=== PATIENT | female | born 1965 | race Caucasian/White ===

== ENCOUNTER 2017-05-05 12:41 | Emergency (ER) | payer OTHER ==
[~2017-05-05] VITALS: Ht 167.6 cm; Wt 54.4 kg
[~2017-05-05 12:41] MED LIST: BENTYL GENERIC10 MG PO; ZOFRAN ODT8 MG PO
--- NOTE | 2017-05-05 12:58 | [facility]gent [facility] Report ---
History of Present Issue Date/Time Seen by Provider 05/05/17 1258 Visit Reason Pt arrived:Walked Presenting Problem:PT STATES BEING STUNG IN R HAND BY A WASP YESTERDAY AFTERNOON. STATES HAND AND ARM SWELLING. STATES TAKING BENADRYL ONE HOUR AGO Location if Accident:Home Onset of symptoms date/time:05/04/17/ or onset unknown for:MEDICAL HX UNKNOWN Have you (or family members/close friends) recently traveled outside the [place]? N If Yes, where/when: Have you had exposure to infectious disease within the past month? TB? Other? Specify: c/o right hand/FA swollen and red following a sting yesterday. Did not see the sting occur but immediately upon being stung, saw a wasp. Soon after sting, redness, swelling. "I just assumed this would pass with benadryl". Benadryl 50mg less than one hour ago. 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 Denies limited ROM fingers, wrist, elbow. Ibuprofen last night helped "somewhat" but none today. Denies N/T. Mild pain, "lots of itching". Denies SOA, difficulty swallowing, difficulty breathing. Source patient Exam Limitations no limitations ALLERGIES Coded Allergies: codeine (05/05/17) History Medical History General CAD? No Angina: No [place]: No Hypertension? No Hyperlipidemia? No CHF? No DVT? No PE? No COPD? No Asthma? No Anemia? No GERD? No Gastric ulcers? No GI Bleed? No Hernia? No Thyroid Problems? No Hypothyroidism? No CVA? No Seizures? No Diabetes? No Renal Insuffiency? No UTI? No Stones? No BPH? No GB Disease: No Nephritic Syndrome? No Asplenia? No Hepatitis? No Sickle Cell Disease? No Arthritis? No Migraines? No Cataracts? No Glaucoma? No MRSA? No HIV? No TB? No Anxiety? No Depression? No Cancer? No Immunization HX DT/Tetanus NOT SURE Surgical Hx Previous Surgery?Y D AND C Social History Smoking Hx Smoker: Current Every Day Smoker Tobacco: Yes Type Cigarettes Alcohol Alcohol: No Review of Systems All Other Systems Reviewed and Negative Constitutional denies fever, denies malaise, denies weakness ENT denies: throat pain, throat swelling. Respiratory see HPI Gastrointestinal denies nausea Musculoskeletal see HPI Skin see HPI, denies lesions Psychiatric/Neurological see HPI Physical Exam Vital Signs Vital Signs Date Time Temp Pulse Resp B/P Pulse O2 O2 Flow FiO2 Ox Delivery Rate 05/05 1253 98.2 68 18 142/77 98 General Appearance no apparent distress Respiratory Status No: respiratory distress. Lung Sounds anterior: lungs clear. posterior: lungs clear. bilateral: lungs clear. Cardiovascular no peripheral edema Peripheral Pulses Pulses normal Yes (radial) Extremities normal range of motion (rt fingers, wrist, elbow), Mild swelling distal upper arm extending to all finger tips, tight, tender, erythematous Strength 5 Upper Ext (L), 5 Upper Ext (R) Neurologic alert, no motor/sensory deficits, oriented x 3 Skin warm/dry, right arm mildly erythematous (see extremity) Medical Decision Making LABS/Meds/Orders Pt receiving controlled substance in ED? No Results/Orders Current Medication Orders Sig/Jcarlos Start time Last Medication Dose Route Stop Time Status Admin Dexamethasone Sodium 8 MG ONCE ONE 05/05 1315 DC 05/05 Phosphate IM 05/05 1316 1312 Ibuprofen 800 MG ONCE ONE 05/05 1315 CAN PO 05/05 1316 Ibuprofen 800 MG ONCE ONE 05/05 1315 DC 05/05 PO 05/05 1316 1311 Dexamethasone Sodium 0 .STK-MED ONE 05/05 1308 DC Phosphate .ROUTE Ibuprofen 0 .STK-MED ONE 05/05 1308 DC PO Progress [facility] Progress Notes Date 05/05/17 Time 1335 Comment No longer itching. redness starting to fade. Remains swollen. pt eager to get back to work. Agrees to follow up if no improvement. Departure Departure Time of Disposition 1335 Disposition DC Home or Self Care(routine) Clinical Impression Primary Impression: Wasp sting Qualifiers: Encounter type: initial encounter Injury intent: accidental or unintentional Qualified Code: T63.461A - Toxic effect of venom of wasps, accidental (unintentional), initial encounter Condition STABLE Referrals NO REFERRAL Due to not having a primary care provider, we have provided you with a list of providers accepting patients. I would encourage you find him a new primary care provider and make an appt RASHAAD as it can take weeks to get a new patient appointment. In the meantime, follow up in the clinic or ER for new, worsening or persistent symptoms. Patient Instructions DI for Insect Bites and Stings, How to Care for an Insect Bite or Sting Additional Instructions * Ice x15-20 mins 3-4 times a day * Ibuprofen 600-800mg every 6 hours as needed for pain but also for inflammation * Benadryl 50mg very 4-6 hours as needed for itching, redness, swelling * ELEVATE to help reduce swelling * Read attached instructions *Seek treatment immediately for new or worsening symptoms or if no improvement over the next 24 hours. Discharge Counseling Counseled pt/family regarding diagnosis, medications/RX, home care, follow up needs at [phone]
[2017-05-05 13:41] VITALS: BP 142/77
== END 2017-05-05 13:42 | disposition home or self-care (01) ==
LOC: UTC 12:41
DX: T63.461A Toxic effect of venom of wasps, accidental (unintentional), initial encounter (principal); Z72.0 Tobacco use